=== PATIENT | female | born 1955 | race American Indian/Alaskan Native ===

== ENCOUNTER 2018-05-19 06:23 | Emergency (ER) | payer BC ==
[~2018-05-19] VITALS: Ht 157.5 cm; Wt 64.9 kg
[2018-05-19] MEDS ORDERED: HYDCHL25 PO (07:31)
[2018-05-19] MEDS ORDERED: ATEN50 PO (07:31)
[2018-05-19] MEDS ORDERED: Pravachol40 MG PO (07:31)
[2018-05-19] MEDS ORDERED: SPIR25 PO (07:32)
[2018-05-19] MEDS ORDERED: BUSP10 PO (07:32)
[2018-05-19] MEDS ORDERED: [UNRECOGNIZED DRUG - OTHER] (07:33)
[2018-05-19 07:34] LABS: Source, Urine Clean Catch
[2018-05-19] MEDS ORDERED: Keflex500 MG PO (07:34)
[2018-05-19 07:40] LABS: Blood, Urine 5+ (Neg); Glucose Qualitative, Urine Neg (Neg); Ketones, Urine 1+ (Neg); Leukocyte Esterase, Urine 3+ (Neg); Nitrite, Urine Pos (Neg); Protein, Urine 3+ (Neg); Specific Gravity, Urine 1.015 (1.003-1.022); Urobilinogen, Urine 1+ (Normal)
[2018-05-19 07:57] LABS: Appearance, Urine Hazy (Clear); Bilirubin, Urine 1+ (Neg); Color, Urine Amber (P-Yellow)
[2018-05-19 07:58] LABS: Bacteria Mod /hpf; Red Blood Cells, Urine TNTC /hpf (0-2); Squamous Epithelial Cells Not Seen /hpf (Few); White Blood Cells, Urine TNTC /hpf (0-5)
== END 2018-05-19 07:44 | disposition home or self-care (01) ==
LOC: ER 06:23
PROVIDERS: Physician Assistant
DX: N39.0 Urinary tract infection, site not specified (principal); Z88.2 Allergy status to sulfonamides; Z88.1 Allergy status to other antibiotic agents; Z91.013 Allergy to seafood; Z79.899 Other long term (current) drug therapy; I10 Essential (primary) hypertension; E78.5 Hyperlipidemia, unspecified; F41.9 Anxiety disorder, unspecified; Z87.891 Personal history of nicotine dependence
CPT/HCPCS: 81001; 87077; 87086; 87186; 99283

== ENCOUNTER 2020-07-15 12:31 | Day surgery (SDC) | payer MEDICARE, OTHER ==
[~2020-07-15] VITALS: Ht 157.5 cm; Wt 63.4 kg
[~2020-07-15 12:31] MED LIST: ATEN50 PO; BUSP10 PO; HYDCHL25 PO; Keflex500 MG PO; Pravachol40 MG PO; SPIR25 PO; [UNRECOGNIZED DRUG - OTHER]
== END 2020-07-15 14:54 | disposition home or self-care (01) ==
LOC: ORSCSDS 12:31
PROVIDERS: Internal Medicine Gastroenterology
PROC: 0DBM8ZX Excision of Descending Colon, Via Natural or Artificial Opening Endoscopic, Diagnostic (ICD-10-PCS; principal; 2020-07-15 13:45)
DX: Z12.11 Encounter for screening for malignant neoplasm of colon (principal); Z86.010 Personal history of colon polyps; D12.4 Benign neoplasm of descending colon; K64.1 Second degree hemorrhoids; I10 Essential (primary) hypertension; Z79.899 Other long term (current) drug therapy; Z87.891 Personal history of nicotine dependence
CPT/HCPCS: 88305; J2704; J7120

== ENCOUNTER → 2022-08-12 | Outpatient (CLI) | payer MEDICARE, OTHER | END | disposition home or self-care (01) | LOC: LAB SHORT 13:45 | DX: N39.0 Urinary tract infection, site not specified (principal) | CPT/HCPCS: 87077; 87086; 87186 ==

== ENCOUNTER → 2025-04-21 | Outpatient (CLI) | payer MEDICARE, OTHER | LOC: LAB SHORT 08:30 → LAB 08:30 | DX: N39.0 Urinary tract infection, site not specified (principal); R31.9 Hematuria, unspecified | CPT/HCPCS: 87077; 87086; 87186 ==